=== PATIENT | female | born 1965 | race Asian ===

== ENCOUNTER 2018-11-26 14:43 | Emergency (ER) | payer BC ==
[~2018-11-26] VITALS: Ht 152.4 cm; Wt 104.3 kg
[2018-11-26 14:58] VITALS: BP_SYST 131
[2018-11-26] MEDS ORDERED: KETOROLAC TROMETHAMINE 30 MG VIAL IVP ONE (15:15)
[2018-11-26] MEDS ORDERED: NACL 0.9% 1,000 ML IV ONE (15:15)
[2018-11-26 15:34] LABS: CALCIUM 8.5 mg/dL (8.4-11.0); CREATININE 0.69 mg/dL (0.55-1.30)
[2018-11-26 15:38] LABS: HEMATOCRIT 43.8 % (36-48); HEMOGLOBIN 14.5 g/dL (12.0-16.0); MEAN CORPUSCULAR HEMOGLOBIN 30 pg (27-31); MEAN CORPUSCULAR HGB CONC 33 % (32-36); MEAN CORPUSCULAR VOLUME 90 fL (79.0-98.0); RED BLOOD CELL COUNT(AUTO) 4.86 MIL/uL (4.2-6.2); RED CELL DISTRIBUTION WIDTH 13.7 % (9.0-15.0)
[2018-11-26 15:39] LABS: BASOPHILS % (AUTO) 0.7 % (0.0-2.0); EOSINOPHILS # (AUTO) 0.2 K/uL (0.0-0.4); EOSINOPHILS % (AUTO) 3.2 % (0.0-4.0); LYMPHOCYTES # (AUTO) 1.5 K/uL (1.0-5.5); LYMPHOCYTES % (AUTO) 29.5 % (20.5-51.5); MONOCYTES # (AUTO) 0.3 K/uL (0.0-1.0); MONOCYTES % (AUTO) 6.4 % (1.7-9.3); NEUTROPHILS % (AUTO) 60.2 % (40.0-70.0); PLATELET COUNT (AUTO) 248 K/uL (130-430)
[2018-11-26 15:40] LABS: ALBUMIN 3.7 g/dL (3.4-4.8); TOTAL BILIRUBIN 0.3 mg/dL (0.0-1.0)
[2018-11-26 16:30] VITALS: BP_SYST 124
== END 2018-11-26 16:30 | disposition home or self-care (01) ==
LOC: SED 14:43
DX: R51 Headache (principal); M79.10 Myalgia, unspecified site; R03.0 Elevated blood-pressure reading, without diagnosis of hypertension
CPT/HCPCS: 36415; 70450; 71045; 80053; 84484; 85025; 86710; 93005; 96374; 99284; J1885; J7030

== ENCOUNTER 2019-10-31 11:09 | Emergency (ER) | payer BC ==
[~2019-10-31] VITALS: Ht 152.4 cm; Wt 52.6 kg
[2019-10-31 12:17] VITALS: BP_SYST 143
[2019-10-31] MEDS ORDERED: ACET325T53 PO (12:17)
--- NOTE | 2019-10-31 12:21 | NUR ---
PATIENT PRESENTS TO THE ER WITH TWO DAY EXACERBATION OF CHRONIC RIGHT WRIST PAIN; NO RECENT TRAUMA, NO OTHER REMARKABLE S/S
--- NOTE | 2019-10-31 12:30 | NUR ---
PATIENT TO [facility] #2
--- NOTE | 2019-10-31 13:19 | NUR ---
ER Dr. Samaniego at bedside examining patient.
[2019-10-31 14:21] VITALS: BP_SYST 133
--- NOTE | 2019-10-31 14:24 | NUR ---
REASSESSMENT; WRIST SPLINT PER ERMD; ACI GIVEN AND PATIENT INDICATED FULL UNDERSTANDING; DISCHARGED AMBULATORY; WITH FULL DISTAL N/C/R INTACT, IMPROVED
== END 2019-10-31 14:24 | disposition home or self-care (01) ==
LOC: SED 11:09
DX: G89.29 Other chronic pain (principal); M25.531 Pain in right wrist; W18.39XA Other fall on same level, initial encounter; Y93.89 Activity, other specified; Y92.89 Other specified places as the place of occurrence of the external cause; Y99.8 Other external cause status
CPT/HCPCS: 99283

== ENCOUNTER 2020-04-18 06:53 | Emergency (ER) | payer BC ==
[~2020-04-18] VITALS: Ht 152.4 cm; Wt 54.4 kg
[~2020-04-18 06:53] MED LIST: ACET325T53 PO
[2020-04-18 07:10] VITALS: BP_SYST 165
[2020-04-18 08:19] VITALS: BP_SYST 152
== END 2020-04-18 08:21 | disposition home or self-care (01) ==
LOC: SED 06:53
DX: S40.011A Contusion of right shoulder, initial encounter (principal); R03.0 Elevated blood-pressure reading, without diagnosis of hypertension; W18.39XA Other fall on same level, initial encounter; Y93.89 Activity, other specified; Y92.89 Other specified places as the place of occurrence of the external cause; Y99.8 Other external cause status
CPT/HCPCS: 73030; 99283

== ENCOUNTER 2021-04-12 14:48 | Emergency (ER) | payer BC ==
[~2021-04-12] VITALS: Ht 154.9 cm; Wt 49.9 kg
[2021-04-12 14:49] VITALS: BP_SYST 137
--- NOTE | 2021-04-12 14:49 | NUR ---
Patient triaged and placed in bed 1. VSS and patient appears in no acute distress at this time. MD notified of need for MSE.
--- NOTE | 2021-04-12 14:50 | NUR ---
ER at bedside examining patient.
--- NOTE | 2021-04-12 14:50 | NUR ---
Pt bib ambulance with complaint of left lower back pain from mechanical slip and fall. Pt reports walking down stairs and missing a step and falling down a couple stairs. Pt denies loss of concioussness or head trauma. Pt [id number] speaking full sentences no distress noted. Attached to monitor resting in [facility].
[2021-04-12] MEDS ORDERED: KETOROLAC TROMETHAMINE 60 MG/2 ML VIAL IM ONE (15:00)
[2021-04-12] MEDS ORDERED: HYDROcodone/ACETAMIN 10-325 MG TAB PO ONE (15:00)
--- NOTE | 2021-04-12 15:38 | NUR ---
update to family, no concerns, questions answered
[2021-04-12] MEDS ORDERED: HYDR-3917 PO (16:42)
[2021-04-12] MEDS ORDERED: IBUP-1969 PO (16:42)
--- NOTE | 2021-04-12 16:45 | NUR ---
Pt asleep in [facility] no distress noted at this time. VSS
[2021-04-12 17:06] VITALS: BP_SYST 119
--- NOTE | 2021-04-12 17:07 | NUR ---
Patient given written and verbal discharge instructions and verbalizes understanding. ER MD discussed with patient the results and treatment provided. Patient in stable condition. ID arm band removed. Rx of motrin and norco given. Patient educated on pain management and to follow up with PMD. Pain Scale 0/10. Opportunity for questions provided and answered. Medication side effect fact sheet provided.
== END 2021-04-12 17:07 | disposition home or self-care (01) ==
LOC: SED 14:48
DX: S33.5XXA Sprain of ligaments of lumbar spine, initial encounter (principal); Z79.899 Other long term (current) drug therapy; W01.0XXA Fall on same level from slipping, tripping and stumbling without subsequent striking against object, initial encounter; Y93.89 Activity, other specified; Y92.89 Other specified places as the place of occurrence of the external cause; Y99.8 Other external cause status
CPT/HCPCS: 72100; 96372; 99283; J1885

== ENCOUNTER 2023-09-30 16:34 | Emergency (ER) | payer BC, OTHER ==
[~2023-09-30] VITALS: Ht 157.5 cm; Wt 52.2 kg
[~2023-09-30 16:34] MED LIST changes: +HYDR-3917 PO; +IBUP-1969 PO
[2023-09-30 16:50] VITALS: BP_SYST 133; PULSE 97; RESP 20; TEMP 99; O2SAT 95
[2023-09-30 17:44] LABS: INFLUENZA TYPE A Negative (NEGATIVE); INFLUENZA TYPE B NEGATIVE (NEGATIVE)
[2023-09-30 17:47] LABS: COVID19 ANTIGEN SOFIA FIA NEGATIVE (NEGATIVE)
[2023-09-30] MEDS ORDERED: BENZ100C92 PO (18:22)
[2023-09-30] MEDS ORDERED: PRED20TA PO (18:22)
[2023-09-30] MEDS ORDERED: PROM6.2527 PO (18:22)
[2023-09-30] MEDS ORDERED: ALBMDI INH (18:22)
[2023-09-30 19:47] VITALS: BP_SYST 133; PULSE 97; RESP 20; TEMP 99; O2SAT 95
== END 2023-09-30 19:47 | disposition home or self-care (01) ==
LOC: SED 16:34
DX: J06.9 Acute upper respiratory infection, unspecified (principal); R05.9 Cough, unspecified; R50.9 Fever, unspecified; J34.89 Other specified disorders of nose and nasal sinuses; I10 Essential (primary) hypertension; Z79.899 Other long term (current) drug therapy; Z20.822 Contact with and (suspected) exposure to COVID-19
CPT/HCPCS: 36415; 71046-TC; 99284